=== PATIENT | female | born 1965 | race Caucasian/White ===

== ENCOUNTER → 2018-10-29 | Outpatient (REF) ==
--- NOTE | 2018-10-30 03:36 | REP ---
Clinical: Left knee pain. Technique: AP, lateral, bilateral oblique and sunrise views of the left knee. Findings: Early moderate tricompartmental osteoarthritic degenerative changes are appreciated. Findings include increased sclerosis primarily involving the medial tibiofemoral joint space and posterior patellar margin with marginal spurring involving the medial femoral condyle, tibial plateau, and patella. Very subtle chondrocalcinosis cannot be excluded. No definite effusion. No acute fracture dislocation. Impression: Moderate tricompartmental osteoarthritic changes. Electronically Signed by Koko Zavala MD 10/30/2018 03:28 A
== END ==
LOC: M SMT 09:04
PROVIDERS: ATTEND Internal Medicine
DX: M17.12 Unilateral primary osteoarthritis, left knee (principal)